=== PATIENT | female | born 1985 | race Caucasian/White ===

== ENCOUNTER 2023-11-05 00:14 | Emergency (ER) | payer OTHER, MEDICAID, SELFPAY ==
[2023-11-05] VITALS (98 sets, daily range): BP systolic 83–106; BP diastolic 46–61; PULSE 76–105; RESP 14–29; TEMP 36.8–37.4; O2SAT 93–100; BMI 20.1
--- NOTE | 2023-11-05 00:45 | ED_ITS ---
HPI - GI Bleed General Chief complaint: Nausea/Vomiting/Diarrhea Stated complaint: throwing up blood Time Seen by Provider: 11/05/23 00:26 Source: patient Mode of arrival: Family Vehicle History of Present Illness HPI Narrative: 38-year-old female with history of alcohol abuse, tobacco abuse presents by private vehicle from home for vomiting blood since earlier this afternoon. Patient states that initially they thought that it was fruit punch, but the vomiting continued and darkened in color and they became concerned that she may be bleeding. Patient states that her mother had esophageal varices and alcohol use disorder as well. Patient has never seen GI before, but she was concerned that she may have liver disease. Patient states she is felt generally poorly for the last 3-4 days with abdominal cramping and nausea. Last drink several days ago. Denies history of withdrawals. Related Data Allergies Allergy/AdvReac Type Severity Reaction Status Date / Time No Known Drug Allergies Allergy Verified 11/05/23 00:51 Review of Systems Review of Systems Narrative: Negative except as noted above Patient History Social History Smoking Status: Current every day smoker Smoking Status: Current every day smoker tobacco type: cigarettes alcohol intake frequency: 3 or more drinks per day Alcohol type: beer, hard liquor and other Substance Use Type: marijuana Exam Initial Vital Signs Initial Vital Signs: Vital Signs Temperature 98.3 F 11/05/23 00:24 Pulse Rate 90 11/05/23 00:24 Respiratory Rate 16 11/05/23 00:24 Blood Pressure 106/59 L 11/05/23 00:24 Pulse Oximetry 100 11/05/23 00:24 Oxygen Delivery Method Room Air 11/05/23 00:24 Const: Awake, alert, appears chronically unwell, older than stated age Cardiac: regular rate, regular rhythm RESP: unlabored, clear bilaterally, no wheezing GI: Atraumatic, soft, nontender, nondistended, no rebound, no guarding MSK: Atraumatic, full range of motion, pulses equal Skin: Warm, Dry, intact, poor skin turgor Neuro: AO x3, CN II-XII grossly intact, moves all extremities Psych: Appropriate for given condition Course Orders Ordered: ED Orders 11/05/23 12:59 Consult to [employer] RESEARCHER - Business Initiatives Manager Stat 11/05/23 13:25 Hemoglobin and Hematocrit Stat 11/05/23 13:45 BMP [Basic Metabolic Panel] Stat 11/05/23 15:40 COVID19 -Nasal RAPID Stat 11/05/23 17:30 Hemoglobin and Hematocrit Stat Discontinued Medications Folic Acid (Folic Acid 1 Mg Tablet) 1 mg PO NOW ONE Stop: 11/05/23 02:23 Last Admin: 11/05/23 02:33 Dose: 1 mg Documented By: KAVIN Sodium Chloride (Normal Saline 0.9%) 1,000 mls @ 1,000 mls/hr IV BOLUS ONE Stop: 11/05/23 01:37 Last Infusion: 11/05/23 02:10 Dose: Infused Documented By: Admin: 11/05/23 01:25 Dose: 1,000 mls/hr Documented By: JANN Octreotide Acetate 500 mcg/ (Sodium Chloride) 101 mls @ 10.1 mls/hr IV CONT CRISTIAN; Protocol Last Infusion: 11/05/23 12:06 Dose: Infused Documented By: Admin: 11/05/23 01:23 Dose: 50 mcg/hr, 10.1 mls/hr Documented By: JANN Thiamine HCl 200 mg/ Sodium (Chloride) 102 mls @ 408 mls/hr IV NOW ONE Stop: 11/05/23 02:23 Last Infusion: 11/05/23 04:52 Dose: Infused Documented By: Admin: 11/05/23 04:32 Dose: 408 mls/hr Documented By: KAVIN Ceftriaxone Sodium 1,000 mg/ (Sodium Chloride) 100 mls @ 200 mls/hr IV NOW ONE Stop: 11/05/23 04:15 Last Infusion: 11/05/23 05:30 Dose: Infused Documented By: Admin: 11/05/23 04:53 Dose: 200 mls/hr Documented By: KAVIN Phytonadione 5 mg/ Sodium (Chloride) 100.5 mls @ 201 mls/hr IV NOW ONE Stop: 11/05/23 07:32 Last Infusion: 11/05/23 08:46 Dose: Infused Documented By: Admin: 11/05/23 08:09 Dose: 201 mls/hr Documented By: NAN Sodium Chloride (Normal Saline 0.9%) 1,000 mls @ 125 mls/hr IV BOLUS ONE Stop: 11/05/23 20:13 Last Admin: 11/05/23 12:24 Dose: 125 mls/hr Documented By: GILLIAN Octreotide Acetate 500 mcg/ (Sodium Chloride) 101 mls @ 10.1 mls/hr IV CONT CRISTIAN; Protocol Last Admin: 11/05/23 20:42 Dose: 50 mcg/hr, 10.1 mls/hr Documented By: Infusion: 11/05/23 20:42 Dose: Infused Documented By: Admin: 11/05/23 12:46 Dose: 50 mcg/hr, 10.1 mls/hr Documented By: GILLIAN Metoclopramide HCl (Metoclopramide 10 Mg/2 Ml Inj) 10 mg IV NOW ONE Stop: 11/05/23 00:39 Last Admin: 11/05/23 01:25 Dose: 10 mg Documented By: JANN Metoclopramide HCl (Metoclopramide 10 Mg/2 Ml Inj) 10 mg IV NOW ONE Stop: 11/05/23 20:21 Last Admin: 11/05/23 20:25 Dose: 10 mg Documented By: CHUN Octreotide Acetate (Octreotide 100 Mcg/Ml Vial) 50 mcg IV NOW ONE Stop: 11/05/23 00:55 Last Admin: 11/05/23 01:25 Dose: 50 mcg Documented By: JANN Pantoprazole Sodium (Pantoprazole 40 Mg Vial) 80 mg IV NOW ONE Stop: 11/05/23 00:39 Last Admin: 11/05/23 01:23 Dose: 80 mg Documented By: JANN Vital Signs Vital signs: Vital Signs - 8 hr 11/05/23 14:00 11/05/23 14:00 11/05/23 14:15 Temperature Pulse Rate 77 Respiratory Rate Blood Pressure 99/55 L 91/53 L Pulse Oximetry 97 Oxygen Delivery Method 11/05/23 14:15 11/05/23 14:30 11/05/23 14:30 Temperature Pulse Rate 79 79 Respiratory Rate 14 Blood Pressure 92/51 L Pulse Oximetry 94 93 Oxygen Delivery Method Room Air 11/05/23 14:45 11/05/23 14:45 11/05/23 15:00 Temperature Pulse Rate 91 H Respiratory Rate Blood Pressure 95/51 L 95/54 L Pulse Oximetry 97 Oxygen Delivery Method 11/05/23 15:00 11/05/23 15:15 11/05/23 15:15 Temperature Pulse Rate 76 78 Respiratory Rate Blood Pressure 91/51 L Pulse Oximetry 98 97 Oxygen Delivery Method 11/05/23 15:30 11/05/23 15:39 11/05/23 15:39 Temperature Pulse Rate 78 96 H Respiratory Rate Blood Pressure 92/55 L Pulse Oximetry 97 98 Oxygen Delivery Method 11/05/23 15:45 11/05/23 15:45 11/05/23 16:00 Temperature Pulse Rate 87 Respiratory Rate Blood Pressure 95/55 L 92/51 L Pulse Oximetry 98 Oxygen Delivery Method 11/05/23 16:00 11/05/23 16:15 11/05/23 16:15 Temperature Pulse Rate 85 81 Respiratory Rate Blood Pressure 100/59 L Pulse Oximetry 95 95 Oxygen Delivery Method 11/05/23 16:30 11/05/23 16:30 11/05/23 16:45 Temperature Pulse Rate 79 Respiratory Rate 16 Blood Pressure 93/52 L 92/55 L Pulse Oximetry 94 Oxygen Delivery Method Room Air 11/05/23 16:45 11/05/23 17:00 11/05/23 17:00 Temperature Pulse Rate 80 79 Respiratory Rate Blood Pressure 90/53 L Pulse Oximetry 94 94 Oxygen Delivery Method 11/05/23 17:15 11/05/23 17:15 11/05/23 17:30 Temperature Pulse Rate 86 Respiratory Rate Blood Pressure 96/53 L 87/54 L Pulse Oximetry 96 Oxygen Delivery Method 11/05/23 17:30 11/05/23 17:45 11/05/23 17:45 Temperature Pulse Rate 87 80 Respiratory Rate Blood Pressure 94/53 L Pulse Oximetry 99 96 Oxygen Delivery Method 11/05/23 18:00 11/05/23 18:13 11/05/23 18:15 Temperature 98.5 F Pulse Rate 80 81 85 Respiratory Rate 19 Blood Pressure 98/54 L Pulse Oximetry 95 97 Oxygen Delivery Method 11/05/23 18:15 11/05/23 18:30 11/05/23 18:30 Temperature Pulse Rate 86 Respiratory Rate Blood Pressure 98/60 100/52 L Pulse Oximetry 98 Oxygen Delivery Method 11/05/23 18:33 11/05/23 18:45 11/05/23 18:45 Temperature 98.9 F Pulse Rate 86 82 Respiratory Rate 18 Blood Pressure 100/52 L 97/54 L Pulse Oximetry 96 Oxygen Delivery Method 11/05/23 19:00 11/05/23 19:00 11/05/23 19:15 Temperature Pulse Rate 85 83 Respiratory Rate Blood Pressure 95/52 L Pulse Oximetry 97 98 Oxygen Delivery Method Room Air Room Air 11/05/23 19:15 11/05/23 19:30 11/05/23 19:30 Temperature Pulse Rate 82 Respiratory Rate Blood Pressure 105/61 97/54 L Pulse Oximetry 96 Oxygen Delivery Method Room Air 11/05/23 19:32 11/05/23 19:45 11/05/23 19:49 Temperature 98.3 F Pulse Rate 82 91 H Respiratory Rate 18 Blood Pressure 97/54 L 96/52 L Pulse Oximetry Oxygen Delivery Method 11/05/23 19:49 11/05/23 20:00 11/05/23 20:00 Temperature Pulse Rate 86 77 Respiratory Rate Blood Pressure 98/57 L Pulse Oximetry 98 97 Oxygen Delivery Method Room Air Room Air 11/05/23 20:15 11/05/23 20:15 11/05/23 20:30 Temperature 98.8 F Pulse Rate 76 Respiratory Rate Blood Pressure 98/54 L 92/52 L Pulse Oximetry 96 Oxygen Delivery Method Room Air 11/05/23 20:30 Temperature Pulse Rate 85 Respiratory Rate Blood Pressure Pulse Oximetry 97 Oxygen Delivery Method Room Air MDM - GI Bleed Differential Diagnosis Differential diagnosis: Likely hemorrhoids, infectious diarrhea and esophageal varices Lab Data 11/05/23 17:30 11/05/23 13:45 Labs: Lab Results 11/05/23 11/05/23 11/05/23 Range/Units 01:00 01:06 01:20 WBC 9.9 (4.5-11.0) X10^3/uL RBC 2.41 L (4.0-5.2) X10^6/uL Hgb 8.3 L (12.0-16.0) g/dL Hct 23.5 L (36-46) % MCV 97.4 (80-100) fL MCH 34.4 H (26-34) PG MCHC 35.4 (30-36) % RDW 14.8 (11.6-14.8) % Plt Count 193 (150-400) X10^3/uL Neut % (Auto) 60.8 (50-75) % Lymph % (Auto) 28.6 (25-40) % [place] % (Auto) 8.6 (3-14) % Eos % (Auto) 0.9 L (2-4) % Baso % (Auto) 1.1 (0-2) % Neut # (Auto) 6000 (9854-1802) /uL Lymph # (Auto) 2800 (4295-2356) /uL [place] # (Auto) 900 (0-900) /uL Eos # (Auto) 100 (0-450) /uL Baso # (Auto) 100 (0-100) /uL PT 20.3 H (9.4-12.5) SECONDS INR 1.8 H (0.9-1.3) Sodium 136 L (137-145) mmol/L Potassium 3.2 L (3.4-5.1) mmol/L Chloride 101 (98-107) mmol/L Carbon Dioxide 25 (22-32) mmol/L BUN 15 (7-17) mg/dL Creatinine 0.38 L (0.52-1.04) mg/dL Estimated GFR > 60 (>60) mL/min BUN/Creatinine Ratio 39.5 H (6-22) Glucose 140 H (70-100) mg/dL Calcium 8.1 L (8.4-10.2) mg/dL Total Bilirubin 2.6 H (0.2-1.3) mg/dL AST 104 H (14-36) IU/L ALT 25 (<35) IU/L Alkaline Phosphatase 156 H (38-126) U/L Ammonia 28 (9-30) umol/L Total Creatine Kinase 22 L (30-135) U/L Troponin I < 0.012 (0.01-0.034) ng/mL Total Protein 7.4 (6.3-8.2) g/dL Albumin 3.0 L (3.5-5.0) g/dL Globulin 4.4 H (1.7-4.1) g/dL Albumin/Globulin Ratio 0.7 L (1.0-2.8) Lipase 90 (23-300) U/L Serum , Qual Negative (Negative) Urine Color Urine Appearance Urine pH (4.5-8.0) Ur Specific [place] (1.000-1.035) Urine Protein (Negative) Urine Glucose (UA) (Negative) g/dL Urine Ketones (NEGATIVE) Urine Occult Blood (Negative) Urine Nitrate (Negative) Urine Bilirubin (NEGATIVE) Urine Urobilinogen (0.2) E.U./dL Ur Leukocyte Esterase (NEGATIVE) Urine RBC (0-5/HPF) Urine WBC (0-5/HPF) Ur Squamous Epith Cells (0-5/HPF) Urine Bacteria (None) Ur Culture Indicated? Vol Urine Centrifuged U Opiates 300ng/mL cut (Negative) Ur Oxycodone Screen (Negative) Urine Methadone Screen (Negative) Ur Barbiturates Screen (Negative) U Tricyclic Antidepress (Negative) Ur Phencyclidine Scrn (Negative) Ur Amphetamines Screen (Negative) U Methamphetamines Scrn (Negative) Ur MDMA Scrn (Ecstasy) (Negative) U Benzodiazepines Scrn (Negative) Urine Cocaine Screen (Negative) U Marijuana (THC) Screen (Negative) Urine Specific [place] (Normal) Ethyl Alcohol < 10 ( - 10) mg/dL Ur Creatinine (Normal) SARS-CoV-2 (PCR) (Negative) Blood Type A Positive Antibody Screen Negative Crossmatch See Detail 11/05/23 11/05/23 11/05/23 Range/Units 04:30 07:40 08:15 WBC (4.5-11.0) X10^3/uL RBC (4.0-5.2) X10^6/uL Hgb 8.1 L 8.1 L (12.0-16.0) g/dL Hct 23.3 L 23.3 L (36-46) % MCV (80-100) fL MCH (26-34) PG MCHC (30-36) % RDW (11.6-14.8) % Plt Count (150-400) X10^3/uL Neut % (Auto) (50-75) % Lymph % (Auto) (25-40) % [place] % (Auto) (3-14) % Eos % (Auto) (2-4) % Baso % (Auto) (0-2) % Neut # (Auto) (5759-0666) /uL Lymph # (Auto) (3837-0379) /uL [place] # (Auto) (0-900) /uL Eos # (Auto) (0-450) /uL Baso # (Auto) (0-100) /uL PT (9.4-12.5) SECONDS INR (0.9-1.3) Sodium (137-145) mmol/L Potassium (3.4-5.1) mmol/L Chloride (98-107) mmol/L Carbon Dioxide (22-32) mmol/L BUN (7-17) mg/dL Creatinine (0.52-1.04) mg/dL Estimated GFR (>60) mL/min BUN/Creatinine Ratio (6-22) Glucose (70-100) mg/dL Calcium (8.4-10.2) mg/dL Total Bilirubin (0.2-1.3) mg/dL AST (14-36) IU/L ALT (<35) IU/L Alkaline Phosphatase (38-126) U/L Ammonia (9-30) umol/L Total Creatine Kinase (30-135) U/L Troponin I (0.01-0.034) ng/mL Total Protein (6.3-8.2) g/dL Albumin (3.5-5.0) g/dL Globulin (1.7-4.1) g/dL Albumin/Globulin Ratio (1.0-2.8) Lipase (23-300) U/L Serum , Qual (Negative) Urine Color [place] Urine Appearance Sl cloudy Urine pH 5.0 (4.5-8.0) Ur Specific [place] <=1.005 (1.000-1.035) Urine Protein 1+ H (Negative) Urine Glucose (UA) Negative (Negative) g/dL Urine Ketones 1+ H (NEGATIVE) Urine Occult Blood 3+ H (Negative) Urine Nitrate Positive H (Negative) Urine Bilirubin Negative (NEGATIVE) Urine Urobilinogen 1.0 (0.2) E.U./dL Ur Leukocyte Esterase Negative (NEGATIVE) Urine RBC 10-30/hpf H (0-5/HPF) Urine WBC 1-5/hpf (0-5/HPF) Ur Squamous Epith Cells 0-1 /hpf (0-5/HPF) Urine Bacteria Few (2-10) H (None) Ur Culture Indicated? Specimen cultured Vol Urine Centrifuged 10ml (spun) U Opiates 300ng/mL cut Negative (Negative) Ur Oxycodone Screen Negative (Negative) Urine Methadone Screen Negative (Negative) Ur Barbiturates Screen Negative (Negative) U Tricyclic Antidepress Negative (Negative) Ur Phencyclidine Scrn Negative (Negative) Ur Amphetamines Screen Positive H (Negative) U Methamphetamines Scrn Positive H (Negative) Ur MDMA Scrn (Ecstasy) Negative (Negative) U Benzodiazepines Scrn Negative (Negative) Urine Cocaine Screen Negative (Negative) U Marijuana (THC) Screen Positive H (Negative) Urine Specific [place] (Normal) Ethyl Alcohol ( - 10) mg/dL Ur Creatinine (Normal) SARS-CoV-2 (PCR) (Negative) Blood Type Antibody Screen Crossmatch 11/05/23 11/05/23 11/05/23 Range/Units 08:15 13:25 13:45 WBC (4.5-11.0) X10^3/uL RBC (4.0-5.2) X10^6/uL Hgb 7.6 L (12.0-16.0) g/dL Hct 21.7 L (36-46) % MCV (80-100) fL MCH (26-34) PG MCHC (30-36) % RDW (11.6-14.8) % Plt Count (150-400) X10^3/uL Neut % (Auto) (50-75) % Lymph % (Auto) (25-40) % [place] % (Auto) (3-14) % Eos % (Auto) (2-4) % Baso % (Auto) (0-2) % Neut # (Auto) (3420-4502) /uL Lymph # (Auto) (6740-0423) /uL [place] # (Auto) (0-900) /uL Eos # (Auto) (0-450) /uL Baso # (Auto) (0-100) /uL PT (9.4-12.5) SECONDS INR (0.9-1.3) Sodium 135 L (137-145) mmol/L Potassium 3.5 (3.4-5.1) mmol/L Chloride 105 (98-107) mmol/L Carbon Dioxide 23 (22-32) mmol/L BUN 13 (7-17) mg/dL Creatinine 0.39 L (0.52-1.04) mg/dL Estimated GFR > 60 (>60) mL/min BUN/Creatinine Ratio 33.3 H (6-22) Glucose 109 H (70-100) mg/dL Calcium 7.3 L (8.4-10.2) mg/dL Total Bilirubin (0.2-1.3) mg/dL AST (14-36) IU/L ALT (<35) IU/L Alkaline Phosphatase (38-126) U/L Ammonia (9-30) umol/L Total Creatine Kinase (30-135) U/L Troponin I (0.01-0.034) ng/mL Total Protein (6.3-8.2) g/dL Albumin (3.5-5.0) g/dL Globulin (1.7-4.1) g/dL Albumin/Globulin Ratio (1.0-2.8) Lipase (23-300) U/L Serum , Qual (Negative) Urine Color Urine Appearance Urine pH Normal (4.5-8.0) Ur Specific [place] (1.000-1.035) Urine Protein (Negative) Urine Glucose (UA) (Negative) g/dL Urine Ketones (NEGATIVE) Urine Occult Blood (Negative) Urine Nitrate (Negative) Urine Bilirubin (NEGATIVE) Urine Urobilinogen (0.2) E.U./dL Ur Leukocyte Esterase (NEGATIVE) Urine RBC (0-5/HPF) Urine WBC (0-5/HPF) Ur Squamous Epith Cells (0-5/HPF) Urine Bacteria (None) Ur Culture Indicated? Vol Urine Centrifuged U Opiates 300ng/mL cut (Negative) Ur Oxycodone Screen (Negative) Urine Methadone Screen (Negative) Ur Barbiturates Screen (Negative) U Tricyclic Antidepress (Negative) Ur Phencyclidine Scrn (Negative) Ur Amphetamines Screen (Negative) U Methamphetamines Scrn (Negative) Ur MDMA Scrn (Ecstasy) (Negative) U Benzodiazepines Scrn (Negative) Urine Cocaine Screen (Negative) U Marijuana (THC) Screen (Negative) Urine Specific [place] Normal (Normal) Ethyl Alcohol ( - 10) mg/dL Ur Creatinine Normal (Normal) SARS-CoV-2 (PCR) (Negative) Blood Type Antibody Screen Crossmatch 11/05/23 11/05/23 Range/Units 15:40 17:30 WBC (4.5-11.0) X10^3/uL RBC (4.0-5.2) X10^6/uL Hgb 7.3 L (12.0-16.0) g/dL Hct 21.0 L (36-46) % MCV (80-100) fL MCH (26-34) PG MCHC (30-36) % RDW (11.6-14.8) % Plt Count (150-400) X10^3/uL Neut % (Auto) (50-75) % Lymph % (Auto) (25-40) % [place] % (Auto) (3-14) % Eos % (Auto) (2-4) % Baso % (Auto) (0-2) % Neut # (Auto) (0005-8269) /uL Lymph # (Auto) (6221-8663) /uL [place] # (Auto) (0-900) /uL Eos # (Auto) (0-450) /uL Baso # (Auto) (0-100) /uL PT (9.4-12.5) SECONDS INR (0.9-1.3) Sodium (137-145) mmol/L Potassium (3.4-5.1) mmol/L Chloride (98-107) mmol/L Carbon Dioxide (22-32) mmol/L BUN (7-17) mg/dL Creatinine (0.52-1.04) mg/dL Estimated GFR (>60) mL/min BUN/Creatinine Ratio (6-22) Glucose (70-100) mg/dL Calcium (8.4-10.2) mg/dL Total Bilirubin (0.2-1.3) mg/dL AST (14-36) IU/L ALT (<35) IU/L Alkaline Phosphatase (38-126) U/L Ammonia (9-30) umol/L Total Creatine Kinase (30-135) U/L Troponin I (0.01-0.034) ng/mL Total Protein (6.3-8.2) g/dL Albumin (3.5-5.0) g/dL Globulin (1.7-4.1) g/dL Albumin/Globulin Ratio (1.0-2.8) Lipase (23-300) U/L Serum , Qual (Negative) Urine Color Urine Appearance Urine pH (4.5-8.0) Ur Specific [place] (1.000-1.035) Urine Protein (Negative) Urine Glucose (UA) (Negative) g/dL Urine Ketones (NEGATIVE) Urine Occult Blood (Negative) Urine Nitrate (Negative) Urine Bilirubin (NEGATIVE) Urine Urobilinogen (0.2) E.U./dL Ur Leukocyte Esterase (NEGATIVE) Urine RBC (0-5/HPF) Urine WBC (0-5/HPF) Ur Squamous Epith Cells (0-5/HPF) Urine Bacteria (None) Ur Culture Indicated? Vol Urine Centrifuged U Opiates 300ng/mL cut (Negative) Ur Oxycodone Screen (Negative) Urine Methadone Screen (Negative) Ur Barbiturates Screen (Negative) U Tricyclic Antidepress (Negative) Ur Phencyclidine Scrn (Negative) Ur Amphetamines Screen (Negative) U Methamphetamines Scrn (Negative) Ur MDMA Scrn (Ecstasy) (Negative) U Benzodiazepines Scrn (Negative) Urine Cocaine Screen (Negative) U Marijuana (THC) Screen (Negative) Urine Specific [place] (Normal) Ethyl Alcohol ( - 10) mg/dL Ur Creatinine (Normal) SARS-CoV-2 (PCR) Negative (Negative) Blood Type Antibody Screen Crossmatch ECG Data Interpretation: Normal sinus rhythm at 86 beats per minute, normal axis. No ST T wave changes, normal intervals MDM Narrative Medical decision making narrative: Very chronically unwell appearing patient presenting for hematemesis. I did witnessed the patient vomiting bright red blood-appearing material into an emesis bag on arrival. Two IVs placed, type and screen drawn, placed on cardiac technologist. Blood pressure initially is 106/59, heart rate 90 beats per minute. Empiric Protonix, octreotide, Reglan ordered. Thiamine and folic acid ordered as well due to history of alcohol use disorder. Laboratory work is significant for anemia with hemoglobin 8.3. Since patient did have multiple episodes of bright red bloody emesis while here a single unit of packed red blood cells ordered for transfusion. Chest x-ray shows no acute cardiopulmonary process. Pending CT angio of the abdomen and pelvis. CT angio of the abdomen and pelvis is significant for hepatosplenomegaly, trace ascites, no active bleeding. After receiving antiemetics patient has had no episodes of hematemesis. 412 - Spoke with Dr. Avila of [facility] who recommended transfer to a facility that could also do a TIPS procedure if indicated. Will continue to search for available facilities. 47 - Spoke with Dr. Prince of [facility] who accepts patient, requests admission to hospitalist judd 599 - Spoke with Dr. Ramires, hospitalist, who accepts patient. Pending available bed for transfer. Patient required extra blood throughout the day, however no more episodes of hematemesis witnessed. Accepted by [facility]. [id number] - Patient transported in stable condition to outside hospital. Reglan given prior to transport due to patient fear of carsickness. Critical Care Time Critical Care Time Critical Care Time: Yes Total Critical Care Time: 63 Attestation: upper GI bleed requiring transfusion Discharge Plan Departure Patient Disposition: [facility] Clinical Impression: Hematemesis, Alcohol use disorder, Continuous tobacco abuse, Cirrhosis
--- NOTE | 2023-11-05 00:49 | DI.RAD.S_ITS ---
PROCEDURE: XR CHEST 1V INDICATIONS: FEVER/COUGH TECHNIQUE: One view of the chest was acquired. COMPARISON: None. FINDINGS: Surgical changes and devices: None. Lungs and pleura: Lungs are clear. No pleural effusions or pneumothorax. Mediastinum: Mediastinal contours appear normal. Heart size is normal. Bones and chest wall: No suspicious bony lesions. Overlying soft tissues appear unremarkable. Healing right rib fracture. IMPRESSION: No acute cardiopulmonary abnormality is seen. Approved by: Patt Ram M.D. on 11/05/2023 at 2:55
--- NOTE | 2023-11-05 00:51 | DI.CT.S_ITS ---
PROCEDURE: CT ANGIO ABDOMEN PELVIS INDICATIONS: HEMATEMESIS TECHNIQUE: After the administration of intravenous contrast, 2.5 mm sections acquired from the diaphragm to the iliac crests. 10 mm maximum intensity projection (MIP) coronal and sagittal reformats were then performed. For radiation dose reduction, the following was used: automated exposure control. COMPARISON: [facility], CR, XR CHEST 1V, 11/05/2023, 1:58. FINDINGS: Image quality: Diagnostic. Abdominal aorta: No aortic aneurysm or evidence of acute aortic syndrome. Mesenteric arteries: Patent without hemodynamically significant stenosis. Renal arteries: Patent without hemodynamically significant stenosis. Lower chest: Small hiatal hernia.. ABDOMEN: Liver: Liver is markedly enlarged measuring 27.3 cm in length and demonstrates subtle nodular contour. There is a 2.3 x 2.6 cm hypodense mass in liver adjacent to the inferior aspect of the gallbladder fossa. There is a small amount of ascites around liver. Gallbladder: There is gallbladder wall thickening. No gallstones. Biliary ducts: No biliary dilation. Pancreas: No ductal dilation. Spleen: Spleen is at the upper limits of normal in size. Adrenal Glands: No adrenal nodules. Kidneys and Ureters: No hydronephrosis. No solid mass. No complex renal cystic lesion which requires follow up. Stomach and Bowel: Normal colonic caliber, without significant wall thickening. Peritoneum: There is a glrkv-lk-dotcbrei amount of peritoneal fluid. Mild mesenteric stranding. No free air. Ventral Wall: No hernia. Abdominal Nodes: No retroperitoneal or mesenteric adenopathy by size criteria. Vessels: Aorta, as above. Normal IVC. Recanalized umbilical vein. Gastric varices. suggesting portal hypertension. PELVIS: Pelvic Organs: High IUD in uterus. Uterus is unremarkable. There are 2 masses in the right ovary, measuring 2.4 cm and 2.6 cm. There is a pdzde-hm-[id number] amount of free fluid in the right adnexa and cul-de-sac. Bladder: Unremarkable. Pelvic Nodes: No enlarged lymph nodes. Miscellaneous: No inguinal hernias are seen. Bones: No aggressive osseous abnormality. IMPRESSION: 1. There is gastric varices and recannulized umbilical vein, compatible with portal hypertension. 2. Marked hepatomegaly. There is a 2.3 x 2.6 cm hypodense mass in liver. Consider liver ultrasound as initial follow-up evaluation. If clinically indicated, MRI with and without contrast would be helpful. 3. Gallbladder wall thickening, probably secondary to liver disease. No gallstones. 4. A hmanu-qo-snfhzxfw amount of ascites. 5. Two masses are seen in right ovary. Recommend pelvic ultrasound for follow-up evaluation. No significant discrepancy with the shift foreman radiology preliminary report. Dictated by: Nell Cervantes M.D. on 11/05/2023 at 8:25 Approved by: Nell Cervantes M.D. on 11/05/2023 at 9:02
[2023-11-05 01:15] LABS: Add Manual Diff / Slide Review NO; Basophils Absolute Auto 100 /uL (0-100); Basophils Percent Auto 1.1 % (0-2); Eosinophils Absolute Auto 100 /uL (0-450); Eosinophils Percent Auto 0.9 % (2-4); Hematocrit 23.5 % (36-46); Hemoglobin 8.3 g/dL (12.0-16.0); Lymphocytes Absolute Auto 2800 /uL (1100-4500); Lymphocytes Percent Auto 28.6 % (25-40); Mean Corpuscular HGB Conc 35.4 % (30-36); Mean Corpuscular Hemoglobin 34.4 PG (26-34); Mean Corpuscular Volume 97.4 fL (80-100); Monocytes Absolute Auto 900 /uL (0-900); Monocytes Percent Auto 8.6 % (3-14); Neutrophils Absolute Auto 6000 /uL (1500-7000); Neutrophils Percent Auto 60.8 % (50-75); Platelet Count 193 X10^3/uL (150-400); Red Blood Cell Count 2.41 X10^6/uL (4.0-5.2); Red Cell Distribution Width 14.8 % (11.6-14.8); White Blood Cell Count 9.9 X10^3/uL (4.5-11.0)
[2023-11-05 01:18] LABS: INR 1.8 (0.9-1.3); Prothrombin Time 20.3 SECONDS (9.4-12.5)
[2023-11-05 01:23] LABS: Alanine Aminotransferase 25 IU/L (<35); Albumin Globulin Ratio 0.7 (1.0-2.8); Alkaline Phosphatase 156 U/L (38-126); Aspartate Aminotransferase 104 IU/L (14-36); BUN Creatinine Ratio 39.5 (6-22); Bilirubin Total 2.6 mg/dL (0.2-1.3); Blood Urea Nitrogen 15 mg/dL (7-17); Calcium 8.1 mg/dL (8.4-10.2); Carbon Dioxide 25 mmol/L (22-32); Chloride 101 mmol/L (98-107); Creatine Kinase 22 U/L (30-135); Estimated Glomerular Filt Rate > 60 mL/min (>60); Ethanol (ETOH) < 10 mg/dL; Globulin 4.4 g/dL (1.7-4.1); Glucose 140 mg/dL (70-100); HEMOLYSIS < 15 (0-50); Lipase 90 U/L (23-300); Potassium 3.2 mmol/L (3.4-5.1); Sodium 136 mmol/L (137-145); Total Protein 7.4 g/dL (6.3-8.2)
[2023-11-05] MEDS: OCTREOTIDE 500 MCG in SODIUM CHLORIDE 0.9% 100 ML 10.1 MCG IV ×3 (01:23→20:42)
[2023-11-05] MEDS: PANTOPRAZOLE 40 MG VIAL 80 MG IV (01:23)
[2023-11-05] MEDS: METOCLOPRAMIDE 10 MG/2 ML INJ IV ×2 (01:25→20:25)
[2023-11-05] MEDS: OCTREOTIDE 100 MCG/ML VIAL 50 MCG IV (01:25)
[2023-11-05] MEDS: SODIUM CHLORIDE 0.9% 1,000 ML 1000 ML IV (01:25)
[2023-11-05 01:34] LABS: Ammonia (NH3) 28 umol/L (9-30)
[2023-11-05 01:35] LABS: Troponin I < 0.012 ng/mL (0.01-0.034)
[2023-11-05 01:52] LABS: Pregnancy Test Serum,Qual Negative (Negative)
--- NOTE | 2023-11-05 02:08 | PC.NURSE ---
Pt going to CT w/ radio antenna installer
[2023-11-05] MEDS: FOLIC ACID 1 MG TABLET PO (02:33)
[2023-11-05] MEDS: THIAMINE 200 MG in SODIUM CHLORIDE 0.9% 100 ML 408 MG IV (04:32)
[2023-11-05 04:35] LABS: Hematocrit 23.3 % (36-46); Hemoglobin 8.1 g/dL (12.0-16.0)
--- NOTE | 2023-11-05 04:42 | PC.NURSE ---
Working on tranfer to another facility for Esophageal varices and GI. Pt on list at [facility], no list/beds or [facility], [facility], [facility]. CC is working on placement for Pt
--- NOTE | 2023-11-05 04:43 | PC.NURSE ---
Pt is resting in bed. Updated on plan. Pt was educated about severity of condition, pt educated about alcohol consumption and is very aware of needing to stop and very cooperative and in agreeable to needing treatment. This was approximately a 10 minute talk with the patient. Denies any further complaints at this time.
[2023-11-05] MEDS: cefTRIAXone 1,000 MG in SODIUM CHLORIDE 0.9% 100 ML 200 MG IV (04:53)
--- NOTE | 2023-11-05 05:45 | PC.NURSE ---
[facility] transfer [facility] called to ask about pt history. Information provided and they stated they would call us back shortly with more information. Anastasia from [facility] called to say pt was on the wait list for a few places but says she is still looking and requested for us to call them if the pt gets accepted anywhere else.
--- NOTE | 2023-11-05 05:48 | PC.NURSE ---
[facility] transfer center called back so MD Declan Prince could speak to MD Kelsey here.
--- NOTE | 2023-11-05 06:39 | PC.NURSE ---
Pt accepted by [facility]. Accepting DR Ramires F/U with [facility] if not called back by mid morning regarding bed assignment
[2023-11-05 07:49] LABS: Hematocrit 23.3 % (36-46); Hemoglobin 8.1 g/dL (12.0-16.0)
[2023-11-05] MEDS: PHYTONADIONE (VIT K1) 5 MG in SODIUM CHLORIDE 0.9% 100 ML 201 MG IV (08:09)
[2023-11-05 08:22] LABS: Appearance Urine UA SL CLOUDY; Bilirubin Urine UA NEGATIVE (NEGATIVE); Color Urine UA ORANGE; Glucose Urine UA NEGATIVE (Negative); Ketones Urine UA 1+ (NEGATIVE); Leukocyte Esterase Urine UA NEGATIVE (NEGATIVE); Nitrite Urine UA POSITIVE (Negative); Occult Blood Urine UA 3+ (Negative); Protein Urine UA 1+ (Negative); Specific Gravity Urine UA <=1.005 (1.000-1.035); Ur Creatinine Normal (Normal); Ur Specific Gravity Normal (Normal); Urine pH Normal (Normal)
[2023-11-05 08:24] LABS: UR Morphine/Opiate cutoff 300 Negative (Negative); Urine Amphetamines Positive (Negative); Urine Barbiturates Negative (Negative); Urine Benzodiazepines Negative (Negative); Urine Cocaine Negative (Negative); Urine MDMA Negative (Negative); Urine Methadone Negative (Negative); Urine Methamphetamines Positive (Negative); Urine Oxycodone Negative (Negative); Urine Phencyclidine Negative (Negative); Urine Tetrahydrocannabinol Positive (Negative); Urine Tricyclic Antidepressant Negative (Negative); Urine Volume 10mL (spun)
[2023-11-05 08:27] LABS: Bacteria Urine Few (2-10); Culture Indicated Urine Specimen Cultured; RBC Urine 10-30/HPF (0-5/HPF); Squamous Epithelial Cell Urine 0-1 /HPF (0-5/HPF); WBC Urine 1-5/HPF (0-5/HPF)
--- NOTE | 2023-11-05 10:32 | PC.NURSE ---
Liborio from [facility] calls to state that in the chart notes, @ 8810 it is recommended pt is transferred to a facility capable of performing a TIPS procedure. Liborio states [facility] [place] for TIPS procedure and would not be able to accept for this reason. PURCHASING OFFICER notified.
[2023-11-05] MEDS: SODIUM CHLORIDE 0.9% 1,000 ML 125 ML IV (12:24)
[2023-11-05 13:40] LABS: Hematocrit 21.7 % (36-46); Hemoglobin 7.6 g/dL (12.0-16.0)
[2023-11-05 14:02] LABS: BUN Creatinine Ratio 33.3 (6-22); Blood Urea Nitrogen 13 mg/dL (7-17); Calcium 7.3 mg/dL (8.4-10.2); Carbon Dioxide 23 mmol/L (22-32); Chloride 105 mmol/L (98-107); Estimated Glomerular Filt Rate > 60 mL/min (>60); Glucose 109 mg/dL (70-100); HEMOLYSIS < 15 (0-50); Potassium 3.5 mmol/L (3.4-5.1); Sodium 135 mmol/L (137-145)
--- NOTE | 2023-11-05 15:44 | PC.NURSE ---
Dr. Chavira made aware of pt's repeat H/H. pt denies any dizziness/lightheadedness/ nausea or vomitting. BP continuing to run in the 90s systolic. Continuing to monitor for any changes
[2023-11-05 16:30] LABS: COVID19 -Nasal RAPID Negative (Negative)
--- NOTE | 2023-11-05 17:33 | ED_ITS ---
HPI - Nausea/Vomiting/Diarrhea General Chief complaint: Nausea/Vomiting/Diarrhea Stated complaint: throwing up blood Time Seen by Provider: 11/05/23 00:26 Source: patient Mode of arrival: Family Vehicle Related Data Allergies Allergy/AdvReac Type Severity Reaction Status Date / Time No Known Drug Allergies Allergy Verified 11/05/23 00:51 Patient History Social History Smoking Status: Current every day smoker Smoking Status: Current every day smoker tobacco type: cigarettes alcohol intake frequency: 3 or more drinks per day Alcohol type: beer, hard liquor and other Substance Use Type: marijuana Exam Initial Vital Signs Initial Vital Signs: Vital Signs Temperature 98.3 F 11/05/23 00:24 Pulse Rate 90 11/05/23 00:24 Respiratory Rate 16 11/05/23 00:24 Blood Pressure 106/59 L 11/05/23 00:24 Pulse Oximetry 100 11/05/23 00:24 Oxygen Delivery Method Room Air 11/05/23 00:24 Course Orders Ordered: ED Orders 11/05/23 12:59 Consult to CLINICAL EDUCATOR - Sheet Metal Former Stat 11/05/23 13:25 Hemoglobin and Hematocrit Stat 11/05/23 13:45 BMP [Basic Metabolic Panel] Stat 11/05/23 15:40 COVID19 -Nasal RAPID Stat 11/05/23 17:11 Hemoglobin and Hematocrit Stat Sodium Chloride (Normal Saline 0.9%) 1,000 mls @ 125 mls/hr IV BOLUS ONE Stop: 11/05/23 20:13 Last Admin: 11/05/23 12:24 Dose: 125 mls/hr Documented By: GILLIAN Octreotide Acetate 500 mcg/ (Sodium Chloride) 101 mls @ 10.1 mls/hr IV CONT CRISTIAN; Protocol Last Admin: 11/05/23 12:46 Dose: 50 mcg/hr, 10.1 mls/hr Documented By: GILLIAN Discontinued Medications Folic Acid (Folic Acid 1 Mg Tablet) 1 mg PO NOW ONE Stop: 11/05/23 02:23 Last Admin: 11/05/23 02:33 Dose: 1 mg Documented By: KAVIN Sodium Chloride (Normal Saline 0.9%) 1,000 mls @ 1,000 mls/hr IV BOLUS ONE Stop: 11/05/23 01:37 Last Infusion: 11/05/23 02:10 Dose: Infused Documented By: Admin: 11/05/23 01:25 Dose: 1,000 mls/hr Documented By: JANN Octreotide Acetate 500 mcg/ (Sodium Chloride) 101 mls @ 10.1 mls/hr IV CONT CRISTIAN; Protocol Last Infusion: 11/05/23 12:06 Dose: Infused Documented By: Admin: 11/05/23 01:23 Dose: 50 mcg/hr, 10.1 mls/hr Documented By: JANN Thiamine HCl 200 mg/ Sodium (Chloride) 102 mls @ 408 mls/hr IV NOW ONE Stop: 11/05/23 02:23 Last Infusion: 11/05/23 04:52 Dose: Infused Documented By: Admin: 11/05/23 04:32 Dose: 408 mls/hr Documented By: KAVIN Ceftriaxone Sodium 1,000 mg/ (Sodium Chloride) 100 mls @ 200 mls/hr IV NOW ONE Stop: 11/05/23 04:15 Last Infusion: 11/05/23 05:30 Dose: Infused Documented By: Admin: 11/05/23 04:53 Dose: 200 mls/hr Documented By: KAVIN Phytonadione 5 mg/ Sodium (Chloride) 100.5 mls @ 201 mls/hr IV NOW ONE Stop: 11/05/23 07:32 Last Infusion: 11/05/23 08:46 Dose: Infused Documented By: Admin: 11/05/23 08:09 Dose: 201 mls/hr Documented By: NAN Metoclopramide HCl (Metoclopramide 10 Mg/2 Ml Inj) 10 mg IV NOW ONE Stop: 11/05/23 00:39 Last Admin: 11/05/23 01:25 Dose: 10 mg Documented By: JANN Octreotide Acetate (Octreotide 100 Mcg/Ml Vial) 50 mcg IV NOW ONE Stop: 11/05/23 00:55 Last Admin: 11/05/23 01:25 Dose: 50 mcg Documented By: JANN Pantoprazole Sodium (Pantoprazole 40 Mg Vial) 80 mg IV NOW ONE Stop: 11/05/23 00:39 Last Admin: 11/05/23 01:23 Dose: 80 mg Documented By: JANN Vital Signs Vital signs: Vital Signs - 8 hr 11/05/23 09:45 11/05/23 09:45 11/05/23 09:59 Pulse Rate 92 H 94 H Respiratory Rate Blood Pressure 92/53 L Pulse Oximetry 96 97 Oxygen Delivery Method 11/05/23 10:00 11/05/23 10:00 11/05/23 10:15 Pulse Rate 87 88 Respiratory Rate Blood Pressure 99/56 L Pulse Oximetry 96 96 Oxygen Delivery Method 11/05/23 10:15 11/05/23 10:30 11/05/23 10:30 Pulse Rate 90 Respiratory Rate Blood Pressure 97/53 L 92/50 L Pulse Oximetry 95 Oxygen Delivery Method 11/05/23 10:45 11/05/23 10:45 11/05/23 11:00 Pulse Rate 86 Respiratory Rate Blood Pressure 95/50 L 98/52 L Pulse Oximetry 96 Oxygen Delivery Method 11/05/23 11:00 11/05/23 11:15 11/05/23 11:15 Pulse Rate 85 83 Respiratory Rate Blood Pressure 91/51 L Pulse Oximetry 96 96 Oxygen Delivery Method 11/05/23 11:30 11/05/23 11:30 11/05/23 11:45 Pulse Rate 87 Respiratory Rate Blood Pressure 93/55 L 100/61 Pulse Oximetry 97 Oxygen Delivery Method 11/05/23 11:45 11/05/23 12:00 11/05/23 12:00 Pulse Rate 85 80 Respiratory Rate 14 Blood Pressure 94/55 L Pulse Oximetry 96 96 Oxygen Delivery Method Room Air 11/05/23 12:15 11/05/23 12:15 11/05/23 12:30 Pulse Rate 78 Respiratory Rate Blood Pressure 97/57 L 93/57 L Pulse Oximetry 97 Oxygen Delivery Method 11/05/23 12:30 11/05/23 12:45 11/05/23 12:45 Pulse Rate 97 H 84 Respiratory Rate Blood Pressure 83/46 L Pulse Oximetry 98 96 Oxygen Delivery Method 11/05/23 12:47 11/05/23 12:47 11/05/23 13:00 Pulse Rate 94 H Respiratory Rate Blood Pressure 91/54 L 97/51 L Pulse Oximetry 99 Oxygen Delivery Method 11/05/23 13:00 11/05/23 13:15 11/05/23 13:15 Pulse Rate 82 80 Respiratory Rate Blood Pressure 91/52 L Pulse Oximetry 95 95 Oxygen Delivery Method 11/05/23 13:30 11/05/23 13:30 11/05/23 13:45 Pulse Rate 88 Respiratory Rate Blood Pressure 91/53 L 93/54 L Pulse Oximetry 98 Oxygen Delivery Method 11/05/23 13:45 11/05/23 14:00 11/05/23 14:00 Pulse Rate 76 77 Respiratory Rate Blood Pressure 99/55 L Pulse Oximetry 95 97 Oxygen Delivery Method 11/05/23 14:15 11/05/23 14:15 11/05/23 14:30 Pulse Rate 79 Respiratory Rate Blood Pressure 91/53 L 92/51 L Pulse Oximetry 94 Oxygen Delivery Method 11/05/23 14:30 11/05/23 14:45 11/05/23 14:45 Pulse Rate 79 91 H Respiratory Rate 14 Blood Pressure 95/51 L Pulse Oximetry 93 97 Oxygen Delivery Method Room Air 11/05/23 15:00 11/05/23 15:00 11/05/23 15:15 Pulse Rate 76 Respiratory Rate Blood Pressure 95/54 L 91/51 L Pulse Oximetry 98 Oxygen Delivery Method 11/05/23 15:15 11/05/23 15:30 11/05/23 15:39 Pulse Rate 78 78 96 H Respiratory Rate Blood Pressure Pulse Oximetry 97 97 98 Oxygen Delivery Method 11/05/23 15:39 11/05/23 15:45 11/05/23 15:45 Pulse Rate 87 Respiratory Rate Blood Pressure 92/55 L 95/55 L Pulse Oximetry 98 Oxygen Delivery Method 11/05/23 16:00 11/05/23 16:00 11/05/23 16:15 Pulse Rate 85 Respiratory Rate Blood Pressure 92/51 L 100/59 L Pulse Oximetry 95 Oxygen Delivery Method 11/05/23 16:15 11/05/23 16:30 11/05/23 16:30 Pulse Rate 81 79 Respiratory Rate 16 Blood Pressure 93/52 L Pulse Oximetry 95 94 Oxygen Delivery Method Room Air MDM - Nausea/Vomiting/Diarrhea Lab Data 11/05/23 13:25 11/05/23 13:45 Labs: Lab Results 11/05/23 11/05/23 11/05/23 Range/Units 01:00 01:06 01:20 WBC 9.9 (4.5-11.0) X10^3/uL RBC 2.41 L (4.0-5.2) X10^6/uL Hgb 8.3 L (12.0-16.0) g/dL Hct 23.5 L (36-46) % MCV 97.4 (80-100) fL MCH 34.4 H (26-34) PG MCHC 35.4 (30-36) % RDW 14.8 (11.6-14.8) % Plt Count 193 (150-400) X10^3/uL Neut % (Auto) 60.8 (50-75) % Lymph % (Auto) 28.6 (25-40) % Briscoe % (Auto) 8.6 (3-14) % Eos % (Auto) 0.9 L (2-4) % Baso % (Auto) 1.1 (0-2) % Neut # (Auto) 6000 (1340-9785) /uL Lymph # (Auto) 2800 (6562-4574) /uL Briscoe # (Auto) 900 (0-900) /uL Eos # (Auto) 100 (0-450) /uL Baso # (Auto) 100 (0-100) /uL PT 20.3 H (9.4-12.5) SECONDS INR 1.8 H (0.9-1.3) Sodium 136 L (137-145) mmol/L Potassium 3.2 L (3.4-5.1) mmol/L Chloride 101 (98-107) mmol/L Carbon Dioxide 25 (22-32) mmol/L BUN 15 (7-17) mg/dL Creatinine 0.38 L (0.52-1.04) mg/dL Estimated GFR > 60 (>60) mL/min BUN/Creatinine Ratio 39.5 H (6-22) Glucose 140 H (70-100) mg/dL Calcium 8.1 L (8.4-10.2) mg/dL Total Bilirubin 2.6 H (0.2-1.3) mg/dL AST 104 H (14-36) IU/L ALT 25 (<35) IU/L Alkaline Phosphatase 156 H (38-126) U/L Ammonia 28 (9-30) umol/L Total Creatine Kinase 22 L (30-135) U/L Troponin I < 0.012 (0.01-0.034) ng/mL Total Protein 7.4 (6.3-8.2) g/dL Albumin 3.0 L (3.5-5.0) g/dL Globulin 4.4 H (1.7-4.1) g/dL Albumin/Globulin Ratio 0.7 L (1.0-2.8) Lipase 90 (23-300) U/L Serum , Qual Negative (Negative) Urine Color Urine Appearance Urine pH (4.5-8.0) Ur Specific Crane (1.000-1.035) Urine Protein (Negative) Urine Glucose (UA) (Negative) g/dL Urine Ketones (NEGATIVE) Urine Occult Blood (Negative) Urine Nitrate (Negative) Urine Bilirubin (NEGATIVE) Urine Urobilinogen (0.2) E.U./dL Ur Leukocyte Esterase (NEGATIVE) Urine RBC (0-5/HPF) Urine WBC (0-5/HPF) Ur Squamous Epith Cells (0-5/HPF) Urine Bacteria (None) Ur Culture Indicated? Vol Urine Centrifuged U Opiates 300ng/mL cut (Negative) Ur Oxycodone Screen (Negative) Urine Methadone Screen (Negative) Ur Barbiturates Screen (Negative) U Tricyclic Antidepress (Negative) Ur Phencyclidine Scrn (Negative) Ur Amphetamines Screen (Negative) U Methamphetamines Scrn (Negative) Ur MDMA Scrn (Ecstasy) (Negative) U Benzodiazepines Scrn (Negative) Urine Cocaine Screen (Negative) U Marijuana (THC) Screen (Negative) Urine Specific Crane (Normal) Ethyl Alcohol < 10 ( - 10) mg/dL Ur Creatinine (Normal) SARS-CoV-2 (PCR) (Negative) Blood Type A Positive Antibody Screen Negative Crossmatch See Detail 11/05/23 11/05/23 11/05/23 Range/Units 04:30 07:40 08:15 WBC (4.5-11.0) X10^3/uL RBC (4.0-5.2) X10^6/uL Hgb 8.1 L 8.1 L (12.0-16.0) g/dL Hct 23.3 L 23.3 L (36-46) % MCV (80-100) fL MCH (26-34) PG MCHC (30-36) % RDW (11.6-14.8) % Plt Count (150-400) X10^3/uL Neut % (Auto) (50-75) % Lymph % (Auto) (25-40) % Briscoe % (Auto) (3-14) % Eos % (Auto) (2-4) % Baso % (Auto) (0-2) % Neut # (Auto) (7880-8673) /uL Lymph # (Auto) (0295-4488) /uL Briscoe # (Auto) (0-900) /uL Eos # (Auto) (0-450) /uL Baso # (Auto) (0-100) /uL PT (9.4-12.5) SECONDS INR (0.9-1.3) Sodium (137-145) mmol/L Potassium (3.4-5.1) mmol/L Chloride (98-107) mmol/L Carbon Dioxide (22-32) mmol/L BUN (7-17) mg/dL Creatinine (0.52-1.04) mg/dL Estimated GFR (>60) mL/min BUN/Creatinine Ratio (6-22) Glucose (70-100) mg/dL Calcium (8.4-10.2) mg/dL Total Bilirubin (0.2-1.3) mg/dL AST (14-36) IU/L ALT (<35) IU/L Alkaline Phosphatase (38-126) U/L Ammonia (9-30) umol/L Total Creatine Kinase (30-135) U/L Troponin I (0.01-0.034) ng/mL Total Protein (6.3-8.2) g/dL Albumin (3.5-5.0) g/dL Globulin (1.7-4.1) g/dL Albumin/Globulin Ratio (1.0-2.8) Lipase (23-300) U/L Serum , Qual (Negative) Urine Color Calvert Urine Appearance Sl cloudy Urine pH 5.0 (4.5-8.0) Ur Specific Crane <=1.005 (1.000-1.035) Urine Protein 1+ H (Negative) Urine Glucose (UA) Negative (Negative) g/dL Urine Ketones 1+ H (NEGATIVE) Urine Occult Blood 3+ H (Negative) Urine Nitrate Positive H (Negative) Urine Bilirubin Negative (NEGATIVE) Urine Urobilinogen 1.0 (0.2) E.U./dL Ur Leukocyte Esterase Negative (NEGATIVE) Urine RBC 10-30/hpf H (0-5/HPF) Urine WBC 1-5/hpf (0-5/HPF) Ur Squamous Epith Cells 0-1 /hpf (0-5/HPF) Urine Bacteria Few (2-10) H (None) Ur Culture Indicated? Specimen cultured Vol Urine Centrifuged 10ml (spun) U Opiates 300ng/mL cut Negative (Negative) Ur Oxycodone Screen Negative (Negative) Urine Methadone Screen Negative (Negative) Ur Barbiturates Screen Negative (Negative) U Tricyclic Antidepress Negative (Negative) Ur Phencyclidine Scrn Negative (Negative) Ur Amphetamines Screen Positive H (Negative) U Methamphetamines Scrn Positive H (Negative) Ur MDMA Scrn (Ecstasy) Negative (Negative) U Benzodiazepines Scrn Negative (Negative) Urine Cocaine Screen Negative (Negative) U Marijuana (THC) Screen Positive H (Negative) Urine Specific Crane (Normal) Ethyl Alcohol ( - 10) mg/dL Ur Creatinine (Normal) SARS-CoV-2 (PCR) (Negative) Blood Type Antibody Screen Crossmatch 11/05/23 11/05/23 11/05/23 Range/Units 08:15 13:25 13:45 WBC (4.5-11.0) X10^3/uL RBC (4.0-5.2) X10^6/uL Hgb 7.6 L (12.0-16.0) g/dL Hct 21.7 L (36-46) % MCV (80-100) fL MCH (26-34) PG MCHC (30-36) % RDW (11.6-14.8) % Plt Count (150-400) X10^3/uL Neut % (Auto) (50-75) % Lymph % (Auto) (25-40) % Briscoe % (Auto) (3-14) % Eos % (Auto) (2-4) % Baso % (Auto) (0-2) % Neut # (Auto) (6401-5930) /uL Lymph # (Auto) (7126-3210) /uL Briscoe # (Auto) (0-900) /uL Eos # (Auto) (0-450) /uL Baso # (Auto) (0-100) /uL PT (9.4-12.5) SECONDS INR (0.9-1.3) Sodium 135 L (137-145) mmol/L Potassium 3.5 (3.4-5.1) mmol/L Chloride 105 (98-107) mmol/L Carbon Dioxide 23 (22-32) mmol/L BUN 13 (7-17) mg/dL Creatinine 0.39 L (0.52-1.04) mg/dL Estimated GFR > 60 (>60) mL/min BUN/Creatinine Ratio 33.3 H (6-22) Glucose 109 H (70-100) mg/dL Calcium 7.3 L (8.4-10.2) mg/dL Total Bilirubin (0.2-1.3) mg/dL AST (14-36) IU/L ALT (<35) IU/L Alkaline Phosphatase (38-126) U/L Ammonia (9-30) umol/L Total Creatine Kinase (30-135) U/L Troponin I (0.01-0.034) ng/mL Total Protein (6.3-8.2) g/dL Albumin (3.5-5.0) g/dL Globulin (1.7-4.1) g/dL Albumin/Globulin Ratio (1.0-2.8) Lipase (23-300) U/L Serum , Qual (Negative) Urine Color Urine Appearance Urine pH Normal (4.5-8.0) Ur Specific Crane (1.000-1.035) Urine Protein (Negative) Urine Glucose (UA) (Negative) g/dL Urine Ketones (NEGATIVE) Urine Occult Blood (Negative) Urine Nitrate (Negative) Urine Bilirubin (NEGATIVE) Urine Urobilinogen (0.2) E.U./dL Ur Leukocyte Esterase (NEGATIVE) Urine RBC (0-5/HPF) Urine WBC (0-5/HPF) Ur Squamous Epith Cells (0-5/HPF) Urine Bacteria (None) Ur Culture Indicated? Vol Urine Centrifuged U Opiates 300ng/mL cut (Negative) Ur Oxycodone Screen (Negative) Urine Methadone Screen (Negative) Ur Barbiturates Screen (Negative) U Tricyclic Antidepress (Negative) Ur Phencyclidine Scrn (Negative) Ur Amphetamines Screen (Negative) U Methamphetamines Scrn (Negative) Ur MDMA Scrn (Ecstasy) (Negative) U Benzodiazepines Scrn (Negative) Urine Cocaine Screen (Negative) U Marijuana (THC) Screen (Negative) Urine Specific Crane Normal (Normal) Ethyl Alcohol ( - 10) mg/dL Ur Creatinine Normal (Normal) SARS-CoV-2 (PCR) (Negative) Blood Type Antibody Screen Crossmatch 11/05/23 Range/Units 15:40 WBC (4.5-11.0) X10^3/uL RBC (4.0-5.2) X10^6/uL Hgb (12.0-16.0) g/dL Hct (36-46) % MCV (80-100) fL MCH (26-34) PG MCHC (30-36) % RDW (11.6-14.8) % Plt Count (150-400) X10^3/uL Neut % (Auto) (50-75) % Lymph % (Auto) (25-40) % Briscoe % (Auto) (3-14) % Eos % (Auto) (2-4) % Baso % (Auto) (0-2) % Neut # (Auto) (2017-8271) /uL Lymph # (Auto) (5811-9730) /uL Briscoe # (Auto) (0-900) /uL Eos # (Auto) (0-450) /uL Baso # (Auto) (0-100) /uL PT (9.4-12.5) SECONDS INR (0.9-1.3) Sodium (137-145) mmol/L Potassium (3.4-5.1) mmol/L Chloride (98-107) mmol/L Carbon Dioxide (22-32) mmol/L BUN (7-17) mg/dL Creatinine (0.52-1.04) mg/dL Estimated GFR (>60) mL/min BUN/Creatinine Ratio (6-22) Glucose (70-100) mg/dL Calcium (8.4-10.2) mg/dL Total Bilirubin (0.2-1.3) mg/dL AST (14-36) IU/L ALT (<35) IU/L Alkaline Phosphatase (38-126) U/L Ammonia (9-30) umol/L Total Creatine Kinase (30-135) U/L Troponin I (0.01-0.034) ng/mL Total Protein (6.3-8.2) g/dL Albumin (3.5-5.0) g/dL Globulin (1.7-4.1) g/dL Albumin/Globulin Ratio (1.0-2.8) Lipase (23-300) U/L Serum , Qual (Negative) Urine Color Urine Appearance Urine pH (4.5-8.0) Ur Specific Crane (1.000-1.035) Urine Protein (Negative) Urine Glucose (UA) (Negative) g/dL Urine Ketones (NEGATIVE) Urine Occult Blood (Negative) Urine Nitrate (Negative) Urine Bilirubin (NEGATIVE) Urine Urobilinogen (0.2) E.U./dL Ur Leukocyte Esterase (NEGATIVE) Urine RBC (0-5/HPF) Urine WBC (0-5/HPF) Ur Squamous Epith Cells (0-5/HPF) Urine Bacteria (None) Ur Culture Indicated? Vol Urine Centrifuged U Opiates 300ng/mL cut (Negative) Ur Oxycodone Screen (Negative) Urine Methadone Screen (Negative) Ur Barbiturates Screen (Negative) U Tricyclic Antidepress (Negative) Ur Phencyclidine Scrn (Negative) Ur Amphetamines Screen (Negative) U Methamphetamines Scrn (Negative) Ur MDMA Scrn (Ecstasy) (Negative) U Benzodiazepines Scrn (Negative) Urine Cocaine Screen (Negative) U Marijuana (THC) Screen (Negative) Urine Specific Crane (Normal) Ethyl Alcohol ( - 10) mg/dL Ur Creatinine (Normal) SARS-CoV-2 (PCR) Negative (Negative) Blood Type Antibody Screen Crossmatch Discharge Plan Departure Patient Disposition: [facility] Clinical Impression: Hematemesis, Alcohol use disorder, Continuous tobacco abuse, Cirrhosis
[2023-11-05 17:37] LABS: Hemoglobin 7.3 g/dL (12.0-16.0)
--- NOTE | 2023-11-05 19:10 | PC.NURSE ---
Care assumed. Pt. lying slightly recumbent in stretcher in NAD. Family @ bedside. PRBC & octreotide infusing w/o redness/ swelling @ IV insertion sites. Monitor SR w/ rare PVC. Pt. w/o complaint/request.
--- NOTE | 2023-11-05 19:32 | PC.NURSE ---
Blood transfusing; repeat VS charted per protocol. Pt. ambulatory to bathroom to void; gait steady/ denies dizziness/lightheadedness when upright.
== END 2023-11-05 20:50 | disposition short-term general hospital (02) ==
PROVIDERS: Emergency Medicine; Emergency Provider Emergency Medicine
DX: K92.0 Hematemesis (principal); K74.60 Unspecified cirrhosis of liver; Z72.0 Tobacco use; F10.90 Alcohol use, unspecified, uncomplicated; Z20.822 Contact with and (suspected) exposure to COVID-19
CPT/HCPCS: 36415; 36430; 71045; 74174; 80048; 80053; 80305; 80320; 81001; 82140; 82550; 83690; 84484; 84703; 85014; 85018; 85025; 85610; 86850; 86900; 86901; 87086; 87635; 93005; 93010; 96365; 96366; 96368; 96375; 96376; 99285; 99291; P9016; C9113; J0696; J2354; J2765; J3430; Q9967

== ENCOUNTER 2023-11-19 21:13 | Emergency (ER) | payer OTHER, MEDICAID, SELFPAY ==
[2023-11-19 21:20] VITALS: BP 110/62; PULSE 105; RESP 16; TEMP 37; O2SAT 97; BMI 21.7
--- NOTE | 2023-11-19 22:01 | ED.GENADULT ---
HPI - General Adult General Chief complaint: Abdominal Pain Stated complaint: esophageal problems, recent banding Time Seen by Provider: 11/19/23 21:34 Source: patient and family Mode of arrival: Ambulatory History of Present Illness HPI narrative: Patient is a 38-year-old female. 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 She stated the GI doctor told her that she did not have any ulcers or varices in her stomach. She has been sober since this event which has been several weeks. She did detox at the outside facility before being discharged. She was told that she has cirrhosis. She states that since she was discharged she has been taking her proton pump inhibitor in the morning along with thiamine. She then takes the proton pump inhibitor again in the evening. States when she takes the proton pump inhibitor for short time afterwards she feels like her abdomen becomes more distended and tight and painful. She states she just has to lay on 1 side until the symptoms resolve and then she was back to normal again. She does feel like her abdomen is becoming somewhat distended and feels like there is fluid in her abdomen. She has not having problems breathing. Is tolerating oral intake. No vomiting. Not on anticoagulation. She was told by the GI doctor not to take ibuprofen but she could take Tylenol sporadically as needed. Related Data Previous Rx's Medication Instructions Recorded furosemide 20 mg tablet (Lasix) 20 mg PO DAILY #14 tabs 11/19/23 Allergies Allergy/AdvReac Type Severity Reaction Status Date / Time No Known Drug Allergies Allergy Verified 11/19/23 21:20 Review of Systems Constitutional Constitutional: Reports system reviewed and no additional complaints, except as documented Gastrointestinal Gastrointestinal: Reports system reviewed and no additional complaints, except as documented Genitourinary Genitourinary: Reports system reviewed and no additional complaints, except as documented Integumentary/Breasts Skin/Breast: Reports system reviewed and no additional complaints, except as documented Patient History Social History Smoking Status: Current every day smoker Smoking Status: Current every day smoker tobacco type: cigarettes alcohol intake frequency: 3 or more drinks per day Alcohol type: beer, hard liquor and other Substance Use Type: marijuana Exam Initial Vital Signs Initial Vital Signs: Vital Signs Temperature 98.6 F 11/19/23 21:20 Pulse Rate 105 H 11/19/23 21:20 Respiratory Rate 16 11/19/23 21:20 Blood Pressure 110/62 11/19/23 21:20 Pulse Oximetry 97 11/19/23 21:20 Oxygen Delivery Method Room Air 11/19/23 21:20 [facility] Head: normal to inspection and normocephalic Resp Effort & Inspection: normal respiratory effort Cardio Rate: regular rate GI Inspection: distended Palpation: soft, No firm, No guarding and No tender Neuro General: patient alert, patient awake and moves all extremities Course Orders Ordered: Discontinued Medications Ondansetron HCl (Ondansetron 4 Mg Odt) 4 mg PO NOW PRN PRN Reason: Nausea And Vomiting Ondansetron HCl (Ondansetron 4 Mg/2 Ml Inj) 4 mg IV NOW PRN PRN Reason: Nausea And Vomiting Vital Signs Vital signs: Vital Signs - 8 hr 11/19/23 21:20 11/19/23 22:31 Temperature 98.6 F Pulse Rate 105 H 94 H Respiratory Rate 16 18 Blood Pressure 110/62 104/56 L Pulse Oximetry 97 96 Oxygen Delivery Method Room Air Room Air Medical Decision Making MDM Narrative Medical decision making narrative: Patient is nontoxic appearing. Vital signs are unremarkable. No chest pain. No shortness of breath. Has not had any black-colored stools. Is not vomiting any blood. Is tolerating oral intake. She does have ascites but a very small amount. We did discuss the potential for a paracentesis but I advised against it after discussing the risks and benefits. Her bloating seems to be associated with taking the proton pump inhibitor. I am not exactly sure why this is happening but it occurs when she takes it in the morning and then again in the afternoon and after a short period of time all of her symptoms resolve. We discussed options to include switching to another proton pump inhibitor versus switching to an H2 leelee. Advised that the proton pump inhibitor would be the drug of choice in this scenario but she could not take it because of the symptoms that she was getting then at least being on a H2 leelee would be appropriate. She expressed understanding of this. She will try a different proton pump inhibitor and switch to an H2 leelee if needed. Will also put her on Lasix to try to help with the ascites. We discussed the importance of following up with her GI doctor and also her primary care doctor. There was no indication for admission to the hospital. I do not think that any imaging studies would change the plan of care today. I do not feel that any labs would change the plan of care today as well. Patient was given return precautions. She expressed understanding and agreement. Discharge Plan Departure Patient Disposition: Home Clinical Impression: Ascites Instructions: Ascites Activity Restrictions/Additional Instructions: Would recommend that you switch to a new proton pump inhibitor such as Nexium or Protonix. If these medications still cause your presenting symptoms today then stop these medications and switch to the famotidine. It is important that you follow-up with gastroenterology. Return to the emergency department for new symptoms. Prescriptions: New furosemide [Lasix] 20 mg tablet 20 mg PO DAILY Qty: 14 0RF Stand Alone Forms: Patient Portal/API
[2023-11-19 22:31] VITALS: BP 104/56; PULSE 94; RESP 18; O2SAT 96
== END 2023-11-19 22:34 | disposition home or self-care (01) ==
PROVIDERS: Emergency Provider Emergency Medicine
DX: R18.8 Other ascites (principal)
CPT/HCPCS: 99281

== ENCOUNTER 2024-01-28 16:46 | Emergency (ER) | payer OTHER, MEDICAID, SELFPAY ==
[2024-01-28] VITALS (16 sets, daily range): BP systolic 97–120; BP diastolic 52–76; PULSE 66–90; RESP 9–28; TEMP 36.4; O2SAT 94–100; BMI 22.4
--- NOTE | 2024-01-28 16:57 | ED_ITS ---
HPI - Nausea/Vomiting/Diarrhea <Spencer Pompa MD - Last Filed: 02/10/24 15:57> General Chief complaint: Nausea/Vomiting/Diarrhea Stated complaint: vomiting blood Time Seen by Provider: 01/28/24 16:52 Source: patient Mode of arrival: Family Vehicle History of Present Illness HPI Narrative: Patient brought here by family for hematemesis. Patient has history of liver cirrhosis with esophageal varices. Patient is seen here in October of this year for variceal bleed and transferred to [facility] for esophageal banding. She stopped drinking alcohol in October. Has not drank alcohol since then. Today she was trying on new dentures and it caused her to gag violently and caused her to vomit. Brought in emesis bag. 200 mL of blood. Patient not actively vomiting. Octreotide Protonix has been ordered. [facility] has been paged for records and possible transfer. We do not have GI services here. Related Data Previous Rx's Medication Instructions Recorded furosemide 20 mg tablet (Lasix) 20 mg PO DAILY #14 tabs 11/19/23 Allergies Allergy/AdvReac Type Severity Reaction Status Date / Time No Known Drug Allergies Allergy Verified 11/19/23 21:20 Review of Systems <Spencer Pompa MD - Last Filed: 02/10/24 15:57> Review of Systems Narrative: GENERAL: negative chills, fatigue, malaise, fever, sweats. HEENT: negative sinus pain, ear pain, sore throat RESPIRATORY: negative dyspnea, cough CARDIOVASCULAR: negative chest pain, palpitations GASTROINTESTINAL: Positive hematemesis nausea, vomiting, negative abdominal pain : negative dysuria, frequency, hematuria MUSCULOSKELETAL: negative muscle or bony pain SKIN: negative rash, skin lesions NEUROLOGIC: negative weakness, numbness Patient History <Spencer Pompa MD - Last Filed: 02/10/24 15:57> Social History Smoking Status: Current every day smoker Smoking Status: Current every day smoker tobacco type: cigarettes alcohol intake frequency: 3 or more drinks per day Alcohol type: beer, hard liquor and other Substance Use Type: marijuana Exam <Spencer Pompa MD - Last Filed: 02/10/24 15:57> Narrative Exam Narrative: GENERAL: in no distress, not toxic not dyspneic, no active bleeding here. HEAD: Normocephalic. EYES: Pupils equal round ENT: Mucous membranes moist. NECK: Trachea midline. CARDIOVASCULAR: Regular rate and rhythm RESPIRATORY: Clear to auscultation. Breath sounds equal bilaterally. No wheezes, rales, or rhonchi. GASTROINTESTINAL: Abdomen soft, non-tender bowel sounds are present no peritoneal signs. No CVA tenderness. EXTREMITIES: No gross deformities. BACK: No flank tenderness. NEURO: AOx4. Clear speech. Able to stand from wheelchair without assist and laid down in bed SKIN: Warm and dry PSYCH: Not anxious, is cooperative Initial Vital Signs Initial Vital Signs: Vital Signs Temperature 97.6 F 01/28/24 16:47 Pulse Rate 69 01/28/24 16:47 Respiratory Rate 28 H 01/28/24 16:47 Blood Pressure 114/65 01/28/24 16:47 Pulse Oximetry 98 01/28/24 16:47 Oxygen Delivery Method Room Air 01/28/24 16:47 <Aishwarya Kelsey MD - Last Filed: 01/28/24 23:00> Initial Vital Signs Initial Vital Signs: Vital Signs Temperature 97.6 F 01/28/24 16:47 Pulse Rate 69 01/28/24 16:47 Respiratory Rate 28 H 01/28/24 16:47 Blood Pressure 114/65 01/28/24 16:47 Pulse Oximetry 98 01/28/24 16:47 Oxygen Delivery Method Room Air 01/28/24 16:47 Course <Spencer Pompa MD - Last Filed: 02/10/24 15:57> Orders Ordered: Discontinued Medications Sodium Chloride (Normal Saline 0.9%) 1,000 mls @ 1,000 mls/hr IV BOLUS ONE Stop: 01/28/24 17:51 Last Infusion: 01/28/24 18:30 Dose: Infused Documented By: Admin: 01/28/24 17:08 Dose: 1,000 mls/hr Documented By: KAVIN Octreotide Acetate 500 mcg/ (Sodium Chloride) 101 mls @ 5.05 mls/hr IV CONT CRISTIAN; Protocol Last Infusion: 01/28/24 22:38 Dose: 25 mcg/hr, 5.05 mls/hr Documented By: KAVIN(2) Admin: 01/28/24 17:05 Dose: 25 mcg/hr, 5.05 mls/hr Documented By: KAVIN Ceftriaxone Sodium 2,000 mg/ (Sodium Chloride) 100 mls @ 200 mls/hr IV NOW ONE Stop: 01/28/24 16:57 Last Infusion: 01/28/24 17:50 Dose: Infused Documented By: Admin: 01/28/24 17:11 Dose: 200 mls/hr Documented By: KAVIN Ondansetron HCl (Ondansetron 4 Mg/2 Ml Inj) 4 mg IV NOW ONE Stop: 01/28/24 22:33 Last Admin: 01/28/24 22:36 Dose: 4 mg Documented By: KAVIN(2) Pantoprazole Sodium (Pantoprazole 40 Mg Vial) 40 mg IV NOW ONE Stop: 01/28/24 16:53 Last Admin: 01/28/24 17:09 Dose: 40 mg Documented By: KAVIN Vital Signs Vital signs: Vital Signs - 8 hr 01/28/24 16:47 01/28/24 16:58 01/28/24 16:59 Temperature 97.6 F Pulse Rate 69 75 74 Respiratory Rate 28 H 26 H 22 Blood Pressure 114/65 Pulse Oximetry 98 99 99 Oxygen Delivery Method Room Air 01/28/24 16:59 01/28/24 17:00 01/28/24 17:00 Temperature Pulse Rate 71 Respiratory Rate 23 Blood Pressure 108/70 107/66 Pulse Oximetry 100 Oxygen Delivery Method Room Air 01/28/24 17:18 01/28/24 17:18 01/28/24 17:30 Temperature Pulse Rate 66 82 Respiratory Rate 15 18 Blood Pressure 120/76 Pulse Oximetry 95 100 Oxygen Delivery Method 01/28/24 17:30 01/28/24 17:45 01/28/24 17:45 Temperature Pulse Rate 66 Respiratory Rate 17 Blood Pressure 112/67 112/70 Pulse Oximetry 99 Oxygen Delivery Method 01/28/24 18:00 01/28/24 18:00 01/28/24 18:15 Temperature Pulse Rate 79 Respiratory Rate 17 Blood Pressure 97/57 L 104/57 L Pulse Oximetry 99 Oxygen Delivery Method 01/28/24 18:15 01/28/24 19:30 01/28/24 20:28 Temperature Pulse Rate 88 83 Respiratory Rate 22 15 Blood Pressure 98/53 L Pulse Oximetry 99 96 Oxygen Delivery Method 01/28/24 20:28 01/28/24 21:00 01/28/24 21:00 Temperature Pulse Rate 88 85 80 Respiratory Rate 25 H 21 20 Blood Pressure 100/52 L Pulse Oximetry 98 94 99 Oxygen Delivery Method Room Air Room Air 01/28/24 21:30 01/28/24 22:00 01/28/24 22:00 Temperature Pulse Rate 83 90 Respiratory Rate 9 L 12 Blood Pressure 100/52 L Pulse Oximetry 97 98 Oxygen Delivery Method 01/28/24 22:30 01/28/24 22:32 01/28/24 22:32 Temperature Pulse Rate 86 85 Respiratory Rate 17 23 Blood Pressure 102/58 L Pulse Oximetry 98 99 Oxygen Delivery Method Room Air <Aishwarya Kelsey MD - Last Filed: 01/28/24 23:00> Orders Ordered: Discontinued Medications Sodium Chloride (Normal Saline 0.9%) 1,000 mls @ 1,000 mls/hr IV BOLUS ONE Stop: 01/28/24 17:51 Last Infusion: 01/28/24 18:30 Dose: Infused Documented By: Admin: 01/28/24 17:08 Dose: 1,000 mls/hr Documented By: KAVIN Octreotide Acetate 500 mcg/ (Sodium Chloride) 101 mls @ 5.05 mls/hr IV CONT CRISTIAN; Protocol Last Infusion: 01/28/24 22:38 Dose: 25 mcg/hr, 5.05 mls/hr Documented By: KAVIN(2) Admin: 01/28/24 17:05 Dose: 25 mcg/hr, 5.05 mls/hr Documented By: KAVIN Ceftriaxone Sodium 2,000 mg/ (Sodium Chloride) 100 mls @ 200 mls/hr IV NOW ONE Stop: 01/28/24 16:57 Last Infusion: 01/28/24 17:50 Dose: Infused Documented By: Admin: 01/28/24 17:11 Dose: 200 mls/hr Documented By: KAVIN Ondansetron HCl (Ondansetron 4 Mg/2 Ml Inj) 4 mg IV NOW ONE Stop: 01/28/24 22:33 Last Admin: 01/28/24 22:36 Dose: 4 mg Documented By: KAVIN(2) Pantoprazole Sodium (Pantoprazole 40 Mg Vial) 40 mg IV NOW ONE Stop: 01/28/24 16:53 Last Admin: 01/28/24 17:09 Dose: 40 mg Documented By: KAVIN Vital Signs Vital signs: Vital Signs - 8 hr 01/28/24 16:47 01/28/24 16:58 01/28/24 16:59 Temperature 97.6 F Pulse Rate 69 75 74 Respiratory Rate 28 H 26 H 22 Blood Pressure 114/65 Pulse Oximetry 98 99 99 Oxygen Delivery Method Room Air 01/28/24 16:59 01/28/24 17:00 01/28/24 17:00 Temperature Pulse Rate 71 Respiratory Rate 23 Blood Pressure 108/70 107/66 Pulse Oximetry 100 Oxygen Delivery Method Room Air 01/28/24 17:18 01/28/24 17:18 01/28/24 17:30 Temperature Pulse Rate 66 82 Respiratory Rate 15 18 Blood Pressure 120/76 Pulse Oximetry 95 100 Oxygen Delivery Method 01/28/24 17:30 01/28/24 17:45 01/28/24 17:45 Temperature Pulse Rate 66 Respiratory Rate 17 Blood Pressure 112/67 112/70 Pulse Oximetry 99 Oxygen Delivery Method 01/28/24 18:00 01/28/24 18:00 01/28/24 18:15 Temperature Pulse Rate 79 Respiratory Rate 17 Blood Pressure 97/57 L 104/57 L Pulse Oximetry 99 Oxygen Delivery Method 01/28/24 18:15 01/28/24 19:30 01/28/24 20:28 Temperature Pulse Rate 88 83 Respiratory Rate 22 15 Blood Pressure 98/53 L Pulse Oximetry 99 96 Oxygen Delivery Method 01/28/24 20:28 01/28/24 21:00 01/28/24 21:00 Temperature Pulse Rate 88 85 80 Respiratory Rate 25 H 21 20 Blood Pressure 100/52 L Pulse Oximetry 98 94 99 Oxygen Delivery Method Room Air Room Air 01/28/24 21:30 01/28/24 22:00 01/28/24 22:00 Temperature Pulse Rate 83 90 Respiratory Rate 9 L 12 Blood Pressure 100/52 L Pulse Oximetry 97 98 Oxygen Delivery Method 01/28/24 22:30 01/28/24 22:32 01/28/24 22:32 Temperature Pulse Rate 86 85 Respiratory Rate 17 23 Blood Pressure 102/58 L Pulse Oximetry 98 99 Oxygen Delivery Method Room Air MDM - Nausea/Vomiting/Diarrhea <Spencer Pompa MD - Last Filed: 02/10/24 15:57> Lab Data 01/28/24 16:53 01/28/24 16:53 Labs: Lab Results 01/28/24 01/28/24 01/28/24 Range/Units 16:53 17:10 18:41 WBC 7.1 (4.5-11.0) X10^3/uL RBC 2.92 L (4.0-5.2) X10^6/uL Hgb 9.1 L (12.0-16.0) g/dL Hct 26.2 L (36-46) % MCV 89.6 (80-100) fL MCH 31.2 (26-34) PG MCHC 34.8 (30-36) % RDW 15.9 H (11.6-14.8) % Plt Count 188 (150-400) X10^3/uL Neut % (Auto) 49.5 L (50-75) % Lymph % (Auto) 32.2 (25-40) % [place] % (Auto) 9.7 (3-14) % Eos % (Auto) 3.6 (2-4) % Baso % (Auto) 5.0 H (0-2) % Neut # (Auto) 3500 (6949-8319) /uL Lymph # (Auto) 2300 (5447-1657) /uL [place] # (Auto) 700 (0-900) /uL Eos # (Auto) 300 (0-450) /uL Baso # (Auto) 400 H (0-100) /uL PT 18.1 H (9.4-12.5) SECONDS INR 1.6 H (0.9-1.3) APTT 53 H (25.1-36.5) SECONDS Sodium 136 L (137-145) mmol/L Potassium 3.5 (3.4-5.1) mmol/L Chloride 108 H (98-107) mmol/L Carbon Dioxide 24 (22-32) mmol/L BUN 6 L (7-17) mg/dL Creatinine 0.38 L (0.52-1.04) mg/dL Estimated GFR > 60 (>60) mL/min BUN/Creatinine Ratio 15.8 (6-22) Glucose 86 (70-100) mg/dL Calcium 8.5 (8.4-10.2) mg/dL Total Bilirubin 2.8 H (0.2-1.3) mg/dL AST 74 H (14-36) IU/L ALT 24 (<35) IU/L Alkaline Phosphatase 136 H (38-126) U/L Ammonia 32 H (9-30) umol/L Total Protein 8.1 (6.3-8.2) g/dL Albumin 3.5 (3.5-5.0) g/dL Globulin 4.6 H (1.7-4.1) g/dL Albumin/Globulin Ratio 0.8 L (1.0-2.8) Lipase 373 H (23-300) U/L Urine Test Negative (Negative) Ethyl Alcohol < 10 ( - 10) mg/dL Blood Type A Positive Antibody Screen Negative Urine Dip Bedside Urine Glucose Negative Bedside Urine Bilirubin - Negative Bedside Urine Ketone - Negative Urine Specific [place] 1.010 Bedside Urine Occult Blood - Negative Bedside Urine pH 7.0 Bedside Urine Protein - Negative Bedside Urine Urobilinogen - Negative Bedside Urine Nitrite - Negative Bedside Urine Leukocytes +/- 15 Esterase Imaging Data Chest x-ray: Radiologist's Impression: [address] [address] XRay Report Signed Patient: Francisco Remy MR#: [id number] : 1985 Acct:[id number] Age/Sex: 38 / F Date of Service: 01/28/24 Loc: ED Accession Number: [id number] Procedure: XR chest 1V Ordering Provider: Spencer Pompa MD PROCEDURE: XR CHEST 1V INDICATIONS: Chest pain TECHNIQUE: One view of the chest was acquired. COMPARISON: [facility], , XR CHEST 1V, 11/05/2023, 1:58. FINDINGS: Surgical changes and devices: None. Lungs and pleura: Mild streaky medial right basilar opacity favored to represent atelectasis. Lungs are otherwise clear. No pleural effusions or pneumothorax. Mediastinum: Mediastinal contours appear normal. Heart size is normal. Bones and chest wall: No suspicious bony lesions. Overlying soft tissues appear unremarkable. Healed posterior right rib fracture deformity. IMPRESSION: Mild streaky medial right basilar opacity favored to represent atelectasis. Otherwise, no acute cardiopulmonary abnormalities. Dictated by: Desmond Sullivan M.D. on 01/28/2024 at 17:26 Approved by: Desmond Sullivan M.D. on 01/28/2024 at 17:27 [facility] Narrative Medical decision making narrative: Patient brought here by family for hematemesis. Patient has history of liver cirrhosis with esophageal varices. Patient is seen here in October of this year for variceal bleed and transferred to [facility] for esophageal banding. She stopped drinking alcohol in October. Has not drank alcohol since then. Today she was trying on new dentures and it caused her to gag violently and caused her to vomit. Brought in emesis bag. 200 mL of blood. Patient not actively vomiting. Octreotide Protonix has been ordered. [facility] has been paged for records and possible transfer. We do not have GI services here After history and exam CBC CMP PT INR PTT octreotide Protonix GI consult chest x-ray MDM Medical records reviewed: October 2023 ER visit here for transfer Differential considered: Includes but not limited to esophageal rupture/bleed, gastric ulcer Lab Test results independently reviewed as above. Pertinent findings: Hemoglobin 9.1 hematocrit 26.2 INR 1.6 AST 74 ALT 24 Imaging studies independently reviewed: Chest x-ray no acute finding Consultations: Treatments: Octreotide Protonix Rocephin normal saline Re-evaluations: Discussion: Diagnosis: Hematemesis 6:[address] Pompa: Sign out to Dr. Kelsey. Patient awaiting for acceptance for facility with GI Services. [facility] is full. No beds available. <Aishwarya Kelsey MD - Last Filed: 01/28/24 23:00> Lab Data Labs: Lab Results 01/28/24 01/28/24 01/28/24 Range/Units 16:53 17:10 18:41 WBC 7.1 (4.5-11.0) X10^3/uL RBC 2.92 L (4.0-5.2) X10^6/uL Hgb 9.1 L (12.0-16.0) g/dL Hct 26.2 L (36-46) % MCV 89.6 (80-100) fL MCH 31.2 (26-34) PG MCHC 34.8 (30-36) % RDW 15.9 H (11.6-14.8) % Plt Count 188 (150-400) X10^3/uL Neut % (Auto) 49.5 L (50-75) % Lymph % (Auto) 32.2 (25-40) % [place] % (Auto) 9.7 (3-14) % Eos % (Auto) 3.6 (2-4) % Baso % (Auto) 5.0 H (0-2) % Neut # (Auto) 3500 (7385-1751) /uL Lymph # (Auto) 2300 (8631-9988) /uL [place] # (Auto) 700 (0-900) /uL Eos # (Auto) 300 (0-450) /uL Baso # (Auto) 400 H (0-100) /uL PT 18.1 H (9.4-12.5) SECONDS INR 1.6 H (0.9-1.3) APTT 53 H (25.1-36.5) SECONDS Sodium 136 L (137-145) mmol/L Potassium 3.5 (3.4-5.1) mmol/L Chloride 108 H (98-107) mmol/L Carbon Dioxide 24 (22-32) mmol/L BUN 6 L (7-17) mg/dL Creatinine 0.38 L (0.52-1.04) mg/dL Estimated GFR > 60 (>60) mL/min BUN/Creatinine Ratio 15.8 (6-22) Glucose 86 (70-100) mg/dL Calcium 8.5 (8.4-10.2) mg/dL Total Bilirubin 2.8 H (0.2-1.3) mg/dL AST 74 H (14-36) IU/L ALT 24 (<35) IU/L Alkaline Phosphatase 136 H (38-126) U/L Ammonia 32 H (9-30) umol/L Total Protein 8.1 (6.3-8.2) g/dL Albumin 3.5 (3.5-5.0) g/dL Globulin 4.6 H (1.7-4.1) g/dL Albumin/Globulin Ratio 0.8 L (1.0-2.8) Lipase 373 H (23-300) U/L Urine Test Negative (Negative) Ethyl Alcohol < 10 ( - 10) mg/dL Blood Type A Positive Antibody Screen Negative Urine Dip Bedside Urine Glucose Negative Bedside Urine Bilirubin - Negative Bedside Urine Ketone - Negative Urine Specific [place] 1.010 Bedside Urine Occult Blood - Negative Bedside Urine pH 7.0 Bedside Urine Protein - Negative Bedside Urine Urobilinogen - Negative Bedside Urine Nitrite - Negative Bedside Urine Leukocytes +/- 15 Esterase MDM Narrative Medical decision making narrative: Patient brought here by family for hematemesis. Patient has history of liver cirrhosis with esophageal varices. Patient is seen here in October of this year for variceal bleed and transferred to [facility] for esophageal banding. She stopped drinking alcohol in October. Has not drank alcohol since then. Today she was trying on new dentures and it caused her to gag violently and caused her to vomit. Brought in emesis bag. 200 mL of blood. Patient not actively vomiting. Octreotide Protonix has been ordered. [facility] has been paged for records and possible transfer. We do not have GI services here After history and exam CBC CMP PT INR PTT octreotide Protonix GI consult chest x-ray [facility] Medical records reviewed: October 2023 ER visit here for transfer Differential considered: Includes but not limited to esophageal rupture/bleed, gastric ulcer Lab Test results independently reviewed as above. Pertinent findings: Hemoglobin 9.1 hematocrit 26.2 INR 1.6 AST 74 ALT 24 Imaging studies independently reviewed: Chest x-ray no acute finding Consultations: Treatments: Octreotide Protonix Rocephin normal saline Re-evaluations: Discussion: Diagnosis: Hematemesis 6:[address] Pompa: Sign out to Dr. Kelsey. Patient awaiting for acceptance for facility with GI Services. [facility] is full. No beds available. Patient accepted to [facility]. No further episodes of bleeding. Hemodynamically stable at time of transfer Discharge Plan Departure Patient Disposition: [facility] Clinical Impression: Hematemesis Qualifiers: Nausea presence: unspecified Qualified Code(s): K92.0 - Hematemesis Prescriptions: No Action furosemide [Lasix] 20 mg tablet 20 mg PO DAILY Qty: 14 0RF
--- NOTE | 2024-01-28 17:01 | DI.RAD.S_ITS ---
PROCEDURE: XR CHEST 1V INDICATIONS: Chest pain TECHNIQUE: One view of the chest was acquired. COMPARISON: [facility], CR, XR CHEST 1V, 11/05/2023, 1:58. FINDINGS: Surgical changes and devices: None. Lungs and pleura: Mild streaky medial right basilar opacity favored to represent atelectasis. Lungs are otherwise clear. No pleural effusions or pneumothorax. Mediastinum: Mediastinal contours appear normal. Heart size is normal. Bones and chest wall: No suspicious bony lesions. Overlying soft tissues appear unremarkable. Healed posterior right rib fracture deformity. IMPRESSION: Mild streaky medial right basilar opacity favored to represent atelectasis. Otherwise, no acute cardiopulmonary abnormalities. Dictated by: Desmond Sullivan M.D. on 01/28/2024 at 17:26 Approved by: Desmond Sullivan M.D. on 01/28/2024 at 17:27
[2024-01-28 17:04] LABS: Add Manual Diff / Slide Review NO; Basophils Absolute Auto 400 /uL (0-100); Eosinophils Absolute Auto 300 /uL (0-450); Eosinophils Percent Auto 3.6 % (2-4); Hematocrit 26.2 % (36-46); Hemoglobin 9.1 g/dL (12.0-16.0); Lymphocytes Absolute Auto 2300 /uL (1100-4500); Lymphocytes Percent Auto 32.2 % (25-40); Mean Corpuscular HGB Conc 34.8 % (30-36); Mean Corpuscular Hemoglobin 31.2 PG (26-34); Mean Corpuscular Volume 89.6 fL (80-100); Monocytes Absolute Auto 700 /uL (0-900); Monocytes Percent Auto 9.7 % (3-14); Neutrophils Absolute Auto 3500 /uL (1500-7000); Neutrophils Percent Auto 49.5 % (50-75); Platelet Count 188 X10^3/uL (150-400); Red Blood Cell Count 2.92 X10^6/uL (4.0-5.2); Red Cell Distribution Width 15.9 % (11.6-14.8); White Blood Cell Count 7.1 X10^3/uL (4.5-11.0)
[2024-01-28] MEDS: OCTREOTIDE 500 MCG in SODIUM CHLORIDE 0.9% 100 ML 5.05 MCG IV (17:05)
[2024-01-28] MEDS: SODIUM CHLORIDE 0.9% 1,000 ML 1000 ML IV (17:08)
[2024-01-28] MEDS: PANTOPRAZOLE 40 MG VIAL IV (17:09)
[2024-01-28] MEDS: cefTRIAXone 2,000 MG in SODIUM CHLORIDE 0.9% 100 ML 200 MG IV (17:11)
[2024-01-28 17:15] LABS: INR 1.6 (0.9-1.3); Prothrombin Time 18.1 SECONDS (9.4-12.5)
[2024-01-28 17:18] LABS: PTT Partial Thromboplastin Tim 53 SECONDS (25.1-36.5)
[2024-01-28 17:21] LABS: Alanine Aminotransferase 24 IU/L (<35); Albumin 3.5 g/dL (3.5-5.0); Albumin Globulin Ratio 0.8 (1.0-2.8); Alkaline Phosphatase 136 U/L (38-126); Aspartate Aminotransferase 74 IU/L (14-36); BUN Creatinine Ratio 15.8 (6-22); Bilirubin Total 2.8 mg/dL (0.2-1.3); Blood Urea Nitrogen 6 mg/dL (7-17); Calcium 8.5 mg/dL (8.4-10.2); Carbon Dioxide 24 mmol/L (22-32); Chloride 108 mmol/L (98-107); Estimated Glomerular Filt Rate > 60 mL/min (>60); Ethanol (ETOH) < 10 mg/dL; Globulin 4.6 g/dL (1.7-4.1); Glucose 86 mg/dL (70-100); HEMOLYSIS < 15 (0-50); Lipase 373 U/L (23-300); Potassium 3.5 mmol/L (3.4-5.1); Sodium 136 mmol/L (137-145); Total Protein 8.1 g/dL (6.3-8.2)
[2024-01-28 17:28] LABS: Ammonia (NH3) 32 umol/L (9-30)
--- NOTE | 2024-01-28 18:04 | PC.NURSE ---
spoke to someone unfortunately did not get name at [facility] who got pt information and this tech was told to call back when labs and xray were done, After completion of labs and xray with report, I called to get their fax number and I spoke to Britany who said you were instructed to see if there were other places who can take her. We are at capacity. I stated to Britany that was not part of the instructions given to me but I will contact other facilities to pursue placement as well.
[2024-01-28 18:52] LABS: Pregnancy Test Urine Negative (Negative)
[2024-01-28] MEDS: ONDANSETRON 4 MG/2 ML INJ IV (22:36)
== END 2024-01-28 22:38 | disposition short-term general hospital (02) ==
PROVIDERS: Emergency Medicine; Emergency Provider Emergency Medicine
DX: K92.0 Hematemesis (principal)
CPT/HCPCS: 36415; 71045; 80053; 80320; 81003; 81025; 82140; 83690; 85025; 85610; 85730; 86850; 86900; 86901; 96365; 96366; 96368; 96375; 99284; C9113; J0696; J2354; J2405